=== PATIENT | female | born 1975 | race Caucasian/White ===

== ENCOUNTER → 2016-12-21 | Outpatient (CLI) | payer OTHER ==
--- NOTE | 2016-12-21 09:19 | MAM ---
EXAM DESCRIPTION: Diagnostic Mammo,Left CLINICAL HISTORY: 41 yearsFemale6 MONTH FOLLOW UP COMPARISON: Digital screening bilateral examination 02/15/2016. Left breast digital diagnostic examination 02/28/2016. TECHNIQUE: Digital full field LM CC and MLO projections of the left breast. CAD was utilized. FINDINGS: Focal asymmetry again noted in the posterior third upper outer quadrant of the left breast. Stable since the prior studies. Breast density parenchymal pattern is: scattered fibroglandular densities. Numerous calcifications in the inferior left breast some in groups and some solitary. Also skin calcifications. No new mass density, no new focal asymmetry, and no suspicious microcalcifications in the left breast. IMPRESSION: BI-RADS CATEGORY: 3 PROBABLY BENIGN. Management: Short interval (6-month) follow-up or continued surveillance. This will be performed in January for one year follow-up of the right breast. The results and follow-up were discussed in person with the patient. Communication explaining the results and followup will be mailed to the patient and referring care provider. Electronically signed by: Ti Abad MD 12/21/2016 9:19 AM CDT
== END ==
LOC: MAMMO 08:30
PROVIDERS: ATTEND Family Medicine
DX: R92.8 Other abnormal and inconclusive findings on diagnostic imaging of breast (principal); Z04.8 Encounter for examination and observation for other specified reasons

== ENCOUNTER → 2017-05-11 | Outpatient (CLI) | payer SELFPAY | END | disposition home or self-care (01) | LOC: YCFC.O 08:20 | PROVIDERS: ATTEND Nurse Practitioner Family | DX: E78.2 Mixed hyperlipidemia (principal); I10 Essential (primary) hypertension ==

== ENCOUNTER → 2017-07-10 | Outpatient (CLI) | payer OTHER ==
--- NOTE | 2017-07-10 17:02 | MAM ---
EXAM DESCRIPTION: 3D Diagnostic, Bilateral: Digital Mammography CLINICAL HISTORY: 42 yearsFemalefollow up . Follow-up focal asymmetry upper outer quadrant posterior left breast. No complaints. No family history of breast cancer. Hysterectomy. No HRT. COMPARISON: Diagnostic digital 2-D breast examination are December 21, 2016.. Targeted left breast ultrasound following this examination. Left breast ultrasound 02/28/2016. Report from prior examination also reviewed. TECHNIQUE: Bilateral CC LM MLO projection full-field images, 3-D tomosynthesis digital mammographic technique. Also bilateral synthesized CC MLO LM full-field images. CAD not utilized. FINDINGS: The breast parenchymal density pattern is: Scattered areas of fibroglandular density. No skin thickening or nipple retraction bilateral solitary microcalcifications and skin calcifications. Again noted is focal asymmetry in the posterior third of the upper-outer quadrant of the left breast at the 230 clock position. Stable appearance since the prior study. No new focal, stellate mass or density, no new focal asymmetry , and no suspicious microcalcifications bilaterally. ULTRASOUND: Scanning at the 230-300 clock position of the left breast 6 to 9 cm from the nipple. Heterogeneous fatty and fibroglandular tissues are noted. Anechoic cyst measuring 4.5 x 3.7 mm with well-defined avalos and parallel orientation. Posterior acoustic enhancement. No abnormal vascularity. No discrete solid mass, parenchymal edema, or large calcification. No skin thickening. IMPRESSION: BI-RADS CATEGORY: 2 - BENIGN FINDINGS. FOLLOW UP: Return to routine digital bilateral screening, one year interval from July 2017. The FINDINGS and the follow-up plan were reviewed in person with the patient after the examination. Written communication explaining the IMPRESSION and follow-up will be mailed to the patient and referring care provider. According to the [employer], yearly mammograms are recommended starting at age 40 and continuing as long as a woman is in good health. Any breast change noted on a breast self-exam should be reported promptly to the patient's healthcare provider. Breast MRI is recommended for women with an approximately 20-25% or greater lifetime risk of breast cancer, including women with a strong family history of breast or ovarian cancer and women who have been treated for Hodgkin's disease. A negative mammographic report should not delay tissue diagnosis in patients with significant clinical history or physical findings. Extremely dense breast tissue limits the sensitivity of digital mammography. Electronically signed by: Ti Abad MD 07/10/2017 5:00 PM [facility]
--- NOTE | 2017-07-10 17:04 | US ---
EXAM DESCRIPTION: Breast,Left: Ultrasound CLINICAL HISTORY: 42 yearsFemale6 MONTH FOLLOW UP COMPARISON: Digital 3-D tomosynthesis diagnostic bilateral breast on this visit. Digital 2-D diagnostic left breast examination 12/21/2016. TECHNIQUE: Transcutaneous scanning of the upper-outer quadrant of the middle third and posterior left breast utilizing two-dimensional and Doppler modes. Scanning performed by the seafood specialist and Dr. Abad. FINDINGS: Scanning at the 230-300 clock position of the left breast 6 to 9 cm from the nipple. Heterogeneous fatty and fibroglandular tissues are noted. Anechoic cyst measuring 4.5 x 3.7 mm with well-defined avalos and parallel orientation. Posterior acoustic enhancement. No abnormal vascularity. No discrete solid mass, parenchymal edema, or large calcification. No skin thickening. IMPRESSION: 1. Bi-Rads Category 2: Benign. 2. Please refer to bilateral 3-D tomosynthesis diagnostic study and report on this visit. The FINDINGS and the follow-up plan were reviewed in person with the patient after the examination. Written communication explaining the IMPRESSION and follow-up will be mailed to the patient and referring care provider. Electronically signed by: Ti Abad MD 07/10/2017 5:03 PM [facility]
== END | disposition home or self-care (01) ==
LOC: MAMMO 15:54
PROVIDERS: ATTEND Family Medicine
DX: R92.8 Other abnormal and inconclusive findings on diagnostic imaging of breast (principal)
CPT/HCPCS: 76641; G0204; G0279

== ENCOUNTER → 2019-03-10 | Outpatient (CLI) | payer OTHER ==
--- NOTE | 2019-03-11 17:46 | MAM ---
EXAM DESCRIPTION: 3D Screening BILATERAL : Digital Mammography. CLINICAL HISTORY: 44 years Female ANNUAL SCREENING . No complaints. No personal or family history of breast cancer. Childbirth. Partial hysterectomy 20+ years ago. No HRT. Bilateral breast reduction. Lifetime risk of developing breast cancer (Tyrer-Cuzick model)(%): Not calculated COMPARISON: Screening digital breast tomosynthesis 02/15/2016. Bilateral diagnostic digital breast tomosynthesis 07/10/2017. TECHNIQUE: Bilateral CC and MLO projection full-field images, digital tomosynthesis mammographic technique. Bilateral digital 2-D full-field MLO images. CAD not available for tomosynthesis or 2-D images. FINDINGS: The breast parenchymal density pattern is: Scattered areas of fibroglandular density. No skin thickening or nipple retraction. Inferior bilateral breast calcifications. Small nodular densities, more numerous in the right breast. No new focal, stellate mass or density, focal asymmetry , and no suspicious microcalcifications bilaterally. Stable mammograms compared to prior study. Taking into account, differences in mammographic technique. IMPRESSION: Benign exam. BIRAD CATEGORY: 2 BENIGN FINDINGS. RECOMMENDATIONS: FOLLOW UP: Routine digital bilateral mammographic screening, one year interval from March 2019. Written communication explaining the IMPRESSION and follow-up, will be mailed to the patient and referring health care provider. The FINDINGS and the FOLLOW-UP plan were reviewed in person with the patient after the examination. According to the [employer], yearly mammograms are recommended starting at age 40 and continuing as long as a woman is in good health. Any breast change noted on a breast self-exam should be reported promptly to the patient's healthcare provider. Breast MRI is recommended for women with an approximately 20-25% or greater lifetime risk of breast cancer, including women with a strong family history of breast or ovarian cancer and women who have been treated for Hodgkin's disease. A negative mammographic report should not delay tissue diagnosis in patients with significant clinical history or physical findings. Extremely dense breast tissue limits the sensitivity of digital mammography. Electronically signed by: Ti Abad MD 03/11/2019 5:43 PM CDT
== END ==
LOC: MAMMO 13:23
PROVIDERS: ATTEND Family Medicine
DX: Z12.31 Encounter for screening mammogram for malignant neoplasm of breast (principal)

== ENCOUNTER 2019-03-26 16:09 | Emergency (ER) | payer SELFPAY ==
[2019-03-26 16:43] VITALS: TEMP 99
[2019-03-26] MEDS: diazePAM 5 MG TAB PO ONE (16:48)
[2019-03-26] MEDS: KETOROLAC TROMETHAMINE INJ 30 MG/ML VIAL IM ONE (16:49)
--- NOTE | 2019-03-26 17:16 | RAD ---
EXAM DESCRIPTION: Chest,1 View CLINICAL HISTORY: chest pain COMPARISON: 28 August 2014 TECHNIQUE: AP portable chest FINDINGS: The lungs are clear. There is no infiltrate or effusion. The heart is normal size. IMPRESSION: Normal portable chest Electronically signed by: Guzman Barros MD 03/26/2019 5:14 PM CDT
--- NOTE | 2019-03-26 17:17 | CT ---
EXAM DESCRIPTION: Head CLINICAL HISTORY: headache, known Chiari malformation COMPARISON: None available TECHNIQUE: Multiple axial images of the head without contrast. Multiplanar reformatted images. This exam was performed according to our departmental dose-optimization program, which includes automated exposure control, adjustment of the mA and/or kV according to patient size and/or use of iterative reconstruction technique. FINDINGS: There is no CT evidence of intracranial hemorrhage, mass effect, or large territory infarction. Gated appearance of the cerebellar tonsils which extend below the level of the foramen magnum. The brain parenchyma and ventricles are otherwise normal. There are no abnormal extra-axial fluid collections. Vascular structures are unremarkable. There is no acute calvarial defect. The visualized paranasal sinuses and the mastoids are clear. IMPRESSION: 1. No CT evidence of an acute intracranial abnormality. If there is concern for an acute or subacute infarct, consider follow-up MRI. 2. Chiari I malformation. Electronically signed by: Jomar Adames MD 03/26/2019 5:16 PM CDT
[2019-03-26 17:24] VITALS: BP 167/84; O2SAT 96
--- NOTE | 2019-03-26 17:46 | ED.PDOC ---
History of Present Illness - General Chief Complaint: General Stated Complaint: headache, chest pressure Time Seen by Provider: 03/26/19 16:11 Source: patient Exam Limitations: no limitations - History of Present Illness Initial Comments: the patient is a 44-year-old female presenting to the emergency room secondary to a headache that is been persistent since last night. She does have a history of a Chiari I malformation diagnosed in 2009. She has not been able to have it followed up in the last for 5 years secondary to having no insurance. No focal neurological changes. The patient is obviously very scared and anxious. She is currently having a panic attack hyperventilating and shaking. She reports tingling in her extremities and around her mouth as well as some shortness of breath and chest pressure. Headache is fairly circumferential. Again no focal neurological changes. No syncope. No incontinence. Timing/Duration: other - about 18 hours Severity: moderate Improving Factors: nothing Worsening Factors: nothing Associated Symptoms: headaches Allergies/Adverse Reactions: Allergies Meperidine [From Demerol HCl] Allergy (Verified 08/28/14 12:54) Tetanus Toxoid Adverse Reaction (Verified 08/28/14 12:54) Home Medications: Ambulatory Orders ALPRAZolam [Xanax] 0 mg PO DAILY 08/28/14 Azithromycin [Zithromax Z-Lars] 1 ea PO DAILY #1 pack 08/28/14 Cyclobenzaprine HCl [Flexeril] 0 mg PO DAILY 08/28/14 HYDROmorphone HCL [Dilaudid] 4 mg PO DAILY 08/28/14 Lamotrigine [Lamictal] 100 mg PO DAILY 08/28/14 Morphine Sulfate [Morphine Sulfate ER] 0 mg PO DAILY 08/28/14 Oseltamivir Capsule [Tamiflu] 75 mg PO BID #10 cap 08/28/14 Review of Systems - Review of Systems Constitutional: States: malaise EENTM: States: no symptoms reported Respiratory: States: see HPI Cardiology: States: see HPI Gastrointestinal/Abdominal: States: no symptoms reported Genitourinary: States: other - ccasional mild dysuria. Musculoskeletal: States: other - chronic pain issues at multiple sites. Skin: States: no symptoms reported Neurological: States: anxiety, headache Endocrine: States: no symptoms reported All other Systems: No Change from Baseline Past Medical History (General) - Patient Medical History Hx Seizures: No Hx Stroke: No Hx Dementia: No Hx Asthma: No Hx of COPD: No Hx Cardiac Disorders: No Hx Congestive Heart Failure: No Hx Pacemaker: No Hx Hypertension: No Hx Thyroid Disease: No Hx Diabetes: No Hx Gastroesophageal Reflux: No Hx Renal Disease: No Hx of HIV: No Hx MRSA: No Surgical History: Hysterectomy, other - Social History Hx Tobacco Use: No Hx Alcohol Use: No Hx Substance Use: No Hx Substance Use Treatment: No Hx Depression: No Family Medical History - Family History Mother Living Status: Still Living Physical Exam - Physical Exam General Appearance: Alert, Anxious, Obvious distress Eye Exam: bilateral normal Ears, Nose, Throat: hearing grossly normal, normal ENT inspection Neck: full range of motion, supple Respiratory: lungs clear, normal breath sounds, no respiratory distress, no accessory muscle use Cardiovascular/Chest: normal peripheral pulses, no edema, tachycardia Peripheral Pulses: radial,right: 2+, radial,left: 2+, dorsalis pedis,right: 2+, dorsalis pedis,left: 2+ Gastrointestinal/Abdominal: non tender - obese, soft Rectal Exam: deferred Back Exam: no CVA tenderness, no vertebral tenderness Extremity: non-tender, normal inspection, no pedal edema, normal capillary refill Neurologic: ophthalmic medical assistant II-XII nml as tested, no motor/sensory deficits, alert, oriented x 3, other - ighly anxious and having a panic attack Skin Exam: normal color Comments: Vital Signs - 24 hr 03/26/19 03/26/19 16:15 17:10 Temperature 99.0 F Pulse Rate [ 120 H 86 left brachial] Respiratory 24 20 Rate Blood Pressure 160/116 167/84 [left brachial] O2 Sat by Pulse 98 96 Oximetry blood pressures are now down to 120s over 80s. Progress - Progress Progress: 03/26/19 17:48 the patient is a 44-year-old female presented secondary to headache of about 18 hours duration. No focal neurological changes. The patient is having a panic attack upon arrival which is driving up her heart rate and blood pressure. Once the patient relaxes both of these go back to normal. Head CT shows no evidence of any acute changes. She does have the chronic Chiari I type malformation. 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 She needs to keep herself well hydrated. She does report some dysuria however her urine is fairly clear. This may be from a mild vaginitis. She can try some [id number] Monistat for symptomatic relief. ER warnings were given for any abrupt worsening. The patient will be discharged home to hopefully sleep off the remainder of the headache. headache has moderately improved with medications given. This is most likely a tension type headache. Keep routine follow-up with primary care doctor otherwise. 03/26/19 17:50 - Results/Orders Results/Orders: ead CT shows no acute pathology. She does still have the Chiari I malformation. Chest x-ray shows no acute pathology. EKG shows sinus tachycardia at 116 bpm Normal TX interval. Normal QT interval. Normal axis. Normal R-wave progression. No ST segment or T-wave changes indicative of acute ischemia. Laboratory Tests 03/26/19 03/26/19 03/26/19 16:45 16:47 16:47 WBC 9.1 RBC 4.33 Hgb 11.5 L Hct 34.4 L MCV 79.6 L MCH 26.6 L MCHC 33.4 RDW 15.6 H Plt Count 308 MPV 8.0 Absolute Neuts (auto) 6.40 Absolute Lymphs (auto) 2.20 Absolute Monos (auto) 0.40 Absolute Eos (auto) 0.00 Absolute Basos (auto) 0.00 Neutrophils % 70.8 Lymphocytes % 24.3 Monocytes % 4.4 Eosinophils % 0.1 L Basophils % 0.4 Sodium 139 Potassium 3.8 Chloride 103 Carbon Dioxide 26 Anion Gap 13.8 BUN 13 Creatinine 1.07 BUN/Creatinine Ratio 12.1 Random Glucose 128 H Serum Osmolality 279.3 Calcium 9.4 Magnesium 2.0 Total Bilirubin 0.2 AST 19 ALT 16 Alkaline Phosphatase 82 Creatine Kinase 54 CK-MB (CK-2) 1.2 CK-MB (CK-2) % Not Reportable Troponin I < 0.02 B-Natriuretic Peptide 15.9 Serum Total Protein 8.1 Albumin 3.9 Globulin 4.2 H Albumin/Globulin Ratio 0.9 L TSH 0.64 Urine Color Yellow Urine Appearance Sl cloudy Urine pH 6.0 Ur Specific [place] <= 1.005 Urine Protein Negative Urine Glucose (UA) Negative Urine Ketones Negative Urine Blood Trace-intact H Urine Nitrite Negative Urine Bilirubin Negative Urine Urobilinogen 0.2 Ur Leukocyte Esterase Small H Urine RBC 0 Urine WBC 3-5 H Ur Epithelial Cells 1-3 Amorphous Sediment 1+ Urine Bacteria 1+ Departure - Departure Clinical Impression: Panic attack Headache Qualifiers: Headache type: unspecified Headache chronicity pattern: acute headache Intractability: not intractable Qualified Code(s): R51 - Headache Disposition: Discharge to Home or Self Care Condition: Fair Departure Forms: ED Discharge - Pt. Copy, Patient Portal Self Enrollment Instructions: Anxiety, Adult (DC) Diet: regular diet Activity: increase activity as tolerated Referrals: Marcia Lilly NP [Primary Care Provider] - 1-2 Weeks Home Medications: Ambulatory Orders ALPRAZolam [Xanax] 0 mg PO DAILY 08/28/14 Azithromycin [Zithromax Z-Lars] 1 ea PO DAILY #1 pack 08/28/14 Cyclobenzaprine HCl [Flexeril] 0 mg PO DAILY 08/28/14 HYDROmorphone HCL [Dilaudid] 4 mg PO DAILY 08/28/14 Lamotrigine [Lamictal] 100 mg PO DAILY 08/28/14 Morphine Sulfate [Morphine Sulfate ER] 0 mg PO DAILY 08/28/14 Oseltamivir Capsule [Tamiflu] 75 mg PO BID #10 cap 08/28/14 Additional Instructions: the patient is a 44-year-old female presented secondary to headache of about 18 hours duration. No focal neurological changes. The patient is having a panic attack upon arrival which is driving up her heart rate and blood pressure. Once the patient relaxes both of these go back to normal. Head CT shows no evidence of any acute changes. She does have the chronic Chiari I type malformation. She does need to keep follow-up with neurology for this in the correction. She needs to keep herself well hydrated. She does report some dysuria however her urine is fairly clear. This may be from a mild vaginitis. She can try some [id number] Monistat for symptomatic relief. ER warnings were given for any abrupt worsening. The patient will be discharged home to hopefully sleep off the remainder of the headache. This is most likely a tension type headache. Keep routine follow-up with primary care doctor otherwise.
== END 2019-03-26 17:57 | disposition home or self-care (01) ==
LOC: ER 16:09
DX: R51 Headache (principal); F41.0 Panic disorder [episodic paroxysmal anxiety]; R07.89 Other chest pain; R30.0 Dysuria; R00.0 Tachycardia, unspecified; G93.5 Compression of brain; G89.29 Other chronic pain
CPT/HCPCS: 36415; 70450; 71045; 80053; 81001; 82550; 82553; 83735; 83880; 84443; 84484; 85025; 87077; 87086; 87186; 93005; J1885

== ENCOUNTER → 2019-04-13 | Outpatient (CLI) | payer SELFPAY | LOC: YCFC.O 11:07 | PROVIDERS: ATTEND Nurse Practitioner Family | DX: I10 Essential (primary) hypertension (principal); Z13.220 Encounter for screening for lipoid disorders; Z68.42 Body mass index [BMI] 45.0-49.9, adult ==

== ENCOUNTER 2019-04-24 06:29 | Emergency (ER) | payer SELFPAY ==
[2019-04-24] MEDS ORDERED: SODIUM CHLORIDE 0.9% 1000ML 1,000 ML IVS ONE (06:56)
--- NOTE | 2019-04-24 06:59 | ED.PDOC ---
History of Present Illness - General Source: patient Exam Limitations: no limitations - History of Present Illness Initial Comments: the patient is a 44-year-old female presenting to the emergency room secondary to his sensation of feeling dizzy primarily with sitting up or standing up for the last 2 days. She was eventually started on atenolol and lisinopril by her primary care doctor about a week ago. She only took 2 or 3 days of this medication because it was making her have low blood pressures and be dizzy. She discontinued these medications about 2 days ago according to her. Blood pressure is still on the lower end of normal in the 90s over 70s here. There is no abnormal nystagmus. She does get a little bit dizzy with sitting up. We are going to test tilt vitals. She was actually seen here around 3 weeks ago by me for what ended up looking like an anxiety attack along with tension headache. The patient is on chronic pain management in the form of a fentanyl patch, hydrocodone when necessary and Lyrica. These obviously may be contributing to low blood pressures well. Additionally the patient is reporting some urinary frequency and dysuria. I see no focal neurological deficits on this patient are obviously new. No abnormal nystagmus at this point. The description of her symptoms does not seem to fit the description for vertigo either. Timing/Duration: other - 2-5 days Severity: mild Improving Factors: rest Worsening Factors: movement Associated Symptoms: denies symptoms <Jhon Heaton L - Last Filed: 04/24/19 06:56> <Christiano Comer - Last Filed: 04/24/19 08:44> - General Chief Complaint: Cardiovascular Problem Stated Complaint: "heart pounding" x2 days Time Seen by Provider: 04/24/19 06:45 - History of Present Illness Allergies/Adverse Reactions: Allergies Meperidine [From Demerol HCl] Allergy (Verified 08/28/14 12:54) Tetanus Toxoid Adverse Reaction (Verified 08/28/14 12:54) Home Medications: Ambulatory Orders ALPRAZolam [Xanax] 0.5 mg PO QID PRN 08/28/14 Lamotrigine [Lamictal] 400 mg PO BEDTIME 08/28/14 Fentanyl 25 mcg TD Q72H 03/26/19 HYDROcodone 10MG/APAP 325MG [[place] 10/325] 1 ea PO QID PRN 03/26/19 Lamotrigine [Lamictal] 100 mg PO 03/26/19 Pregabalin [Lyrica] 75 mg PO QID 03/26/19 Cefuroxime Axetil 250 mg PO Q12H 10 Days #20 tablet 04/24/19 Review of Systems - Review of Systems Constitutional: States: malaise EENTM: States: no symptoms reported Respiratory: States: no symptoms reported Cardiology: States: no symptoms reported Gastrointestinal/Abdominal: States: nausea - when the dizziness is at its worst Genitourinary: States: no symptoms reported Musculoskeletal: States: see HPI - chronic back pain Skin: States: no symptoms reported Neurological: States: see HPI, anxiety Endocrine: States: no symptoms reported All other Systems: No Change from Baseline <Jhon Heaton - Last Filed: 04/24/19 06:56> Past Medical History (General) - Patient Medical History Hx Seizures: No Hx Stroke: No Hx Dementia: No Hx Asthma: No Hx of COPD: No Hx Cardiac Disorders: No Hx Congestive Heart Failure: No Hx Pacemaker: No Hx Hypertension: Yes Hx Thyroid Disease: No Hx Diabetes: No Hx Gastroesophageal Reflux: Yes Hx Renal Disease: No Hx Cancer: No Hx of HIV: No Hx Hepatitis C: No Hx MRSA: No Surgical History: Hysterectomy, other - Vaccination History Hx Tetanus, Diphtheria Vaccination: No Hx Influenza Vaccination: Yes Hx Pneumococcal Vaccination: No Immunizations Up to Date: No - Social History Hx Tobacco Use: No Hx Alcohol Use: No Hx Substance Use: No Hx Substance Use Treatment: No Hx Depression: No <Jhon Heaton - Last Filed: 04/24/19 06:56> Family Medical History - Family History Mother Living Status: Still Living <Jhon Heaton - Last Filed: 04/24/19 06:56> Physical Exam - Physical Exam General Appearance: Alert, Comfortable, No apparent distress Eye Exam: bilateral normal Ears, Nose, Throat: hearing grossly normal, normal ENT inspection Neck: non-tender, supple Respiratory: lungs clear, normal breath sounds, no respiratory distress, no accessory muscle use Cardiovascular/Chest: normal peripheral pulses, regular rate, rhythm - mild sinus tachycardia, no edema Peripheral Pulses: radial,right: 2+, radial,left: 2+, dorsalis pedis,right: 2+, dorsalis pedis,left: 2+ Gastrointestinal/Abdominal: non tender - morbidly obese, soft Rectal Exam: deferred Back Exam: no CVA tenderness, no vertebral tenderness Extremity: normal range of motion, non-tender, no calf tenderness, normal capillary refill Neurologic: aviation tactical readiness officer II-XII nml as tested, alert, oriented x 3, other - the patient seems fairly happy to be here Skin Exam: normal color Comments: Vital Signs - 24 hr 04/24/19 04/24/19 06:34 06:53 Pulse Rate 96 H Pulse Rate [ 110 H 101 H radial] Respiratory 16 Rate Blood Pressure 98/75 [left] O2 Sat by Pulse 95 Oximetry <Jhon Heaton - Last Filed: 04/24/19 06:56> Progress - Progress Progress: 04/24/19 07:55 PT REPORTS CONTINUED DIZZINESS ALTHOUGH BP HAS IMPROVED, NOW 113/77 AFTER APPROX 750ML IV NS. LABS AND DIAGNOSTICS DISCUSSED WITH PT. WILL REPLACE POTASSIUM, UA STILL PENDING. 04/24/19 08:40 PTS BP NOW 137/91 AFTER FULL LITER OF FLUID. UA RESULTS DISCUSSED. RECOMMEND FOLLOW UP WITH PCP REGARDING FLUCTUATING BP READINGS. <Christiano Comer - Last Filed: 04/24/19 08:44> Departure <Jhon Heaton - Last Filed: 04/24/19 06:56> - Departure Time of Disposition: 08:41 <Christiano Comer - Last Filed: 04/24/19 08:44> - Departure Clinical Impression: Dizziness, Hypotension, UTI (urinary tract infection), Hypokalemia Disposition: Discharge to Home or Self Care Condition: Good Departure Forms: ED Discharge - Pt. Copy, Patient Portal Self Enrollment Instructions: Dizziness, Nonvertigo, (DC), Urinary Tract Infection, Adult (DC), Hypokalemia (DC) Referrals: Marcia Lilly PHOTOGRAPHIC PROCESSOR [Primary Care Provider] - 1-5 Days Prescriptions: Cefuroxime Axetil 250 mg PO Q12H 10 Days #20 tablet Home Medications: Ambulatory Orders ALPRAZolam [Xanax] 0.5 mg PO QID PRN 08/28/14 Lamotrigine [Lamictal] 400 mg PO BEDTIME 08/28/14 Fentanyl 25 mcg TD Q72H 03/26/19 HYDROcodone 10MG/APAP 325MG [[place] 10/325] 1 ea PO QID PRN 03/26/19 Lamotrigine [Lamictal] 100 mg PO 03/26/19 Pregabalin [Lyrica] 75 mg PO QID 03/26/19 Cefuroxime Axetil 250 mg PO Q12H 10 Days #20 tablet 04/24/19
--- NOTE | 2019-04-24 07:14 | RAD ---
CHEST, ONE VIEW XR 04/24/2019 CLINICAL HISTORY: Dizziness COMPARISON: Chest 03/26/2019. TECHNIQUE: AP Chest. FINDINGS: [Normal cardiac size. Pulmonary vasculature appears normal. Normal cardiomediastinal contours. Lungs are clear. Pleural spaces are clear. Unremarkable soft tissues and bones.] IMPRESSION: 1. Negative chest. Electronically signed by: Katia Bansal DO 04/24/2019 7:12 AM CDT
[2019-04-24] MEDS ORDERED: POTASSIUM CHLORIDE 20 MEQ TAB PO ONE (08:05)
[2019-04-24] MEDS ORDERED: cefTRIAXone SODIUM 1 GM in SODIUM CHL 0.9% 50ML MIN-BAG+ 50 ML IVPB ONE (08:06)
[2019-04-24] MEDS ORDERED: cefTRIAXone SODIUM 1 GM VIAL ONE (08:12)
[2019-04-24] MEDS ORDERED: SODIUM CHL 0.9% 50ML MIN-BAG+ 50 ML IVPB ONE (08:13)
[2019-04-24 08:52] VITALS: BP 137/64; TEMP 97.1; O2SAT 97
== END 2019-04-24 08:52 | disposition home or self-care (01) ==
LOC: ER 06:29
DX: R42 Dizziness and giddiness (principal); I95.9 Hypotension, unspecified; N39.0 Urinary tract infection, site not specified; E87.6 Hypokalemia; E66.01 Morbid (severe) obesity due to excess calories; R00.0 Tachycardia, unspecified; K21.9 Gastro-esophageal reflux disease without esophagitis; I10 Essential (primary) hypertension; Z79.899 Other long term (current) drug therapy; Z88.7 Allergy status to serum and vaccine; Z88.5 Allergy status to narcotic agent
CPT/HCPCS: 36415; 71045; 80053; 81001; 81025; 82550; 82553; 83605; 83735; 83880; 84484; 85025; 85610; 85730; 87077; 87086; 87186; 93005; J0696; J7030; J7050

== ENCOUNTER → 2019-11-18 | Outpatient (CLI) | payer SELFPAY | DX: Z13.29 Encounter for screening for other suspected endocrine disorder (principal) ==

== ENCOUNTER → 2019-12-28 | Outpatient (CLI) | payer SELFPAY | LOC: YCFC.O 17:03 | PROVIDERS: ATTEND Family Medicine | DX: R61 Generalized hyperhidrosis (principal) ==

== ENCOUNTER 2020-01-07 21:08 | Inpatient (IN) | payer SELFPAY ==
--- NOTE | 2020-01-07 22:27 | RAD ---
EXAM DESCRIPTION: XR CHEST, 1 VIEW CLINICAL HISTORY: palpitations TECHNIQUE: Single frontal view of the chest is submitted. COMPARISON: 04/24/2019 FINDINGS: Heart: The cardiothoracic silhouette is within normal limits. Lungs: No focal consolidation. Mediastinum: Unremarkable Pleura: No appreciable effusion. No pneumothorax. Bones: Intact Upper abdomen: Unremarkable IMPRESSION: No acute disease. Electronically signed by: Bernardo Betancourt MD 01/07/2020 10:23 PM CDT
[2020-01-07] MEDS ORDERED: POTASSIUM CHLORIDE ELIXIR 20 MEQ/15 ML UD PO ONE (22:45)
[2020-01-07] MEDS ORDERED: KCL 40MEQ/NS 1,000 ML IVS ONE (22:47)
--- NOTE | 2020-01-07 22:59 | ED.PDOC ---
History of Present Illness - General Chief Complaint: Chest Pain/LA Stated Complaint: lightheadedness, chest pressure Time Seen by Provider: 01/07/20 21:19 Source: patient Exam Limitations: no limitations - History of Present Illness Initial Comments: The patient is a 44-year-old female presented emergency room secondary to a couple weeks worth of feeling like her heart is racing and some mild associated shortness of breath. Mild loss of appetite over the last day or 2. No real chest pain. No syncope. Patient does have chronic pain issues and chronic anxiety issues along with depression. Timing/Duration: other - 2 weeks Severity: moderate Improving Factors: nothing Worsening Factors: nothing Associated Symptoms: loss of appetite, shortness of breath Allergies/Adverse Reactions: Allergies Meperidine [From Demerol HCl] Adverse Reaction (Verified 01/07/20 21:57) hallucination Tetanus Toxoid Adverse Reaction (Verified 08/28/14 12:54) Home Medications: Ambulatory Orders ALPRAZolam [Xanax] 0.5 mg PO QID PRN 08/28/14 Lamotrigine [Lamictal] 400 mg PO BEDTIME 08/28/14 Fentanyl 25 mcg TD Q72H 03/26/19 HYDROcodone 10MG/APAP 325MG [[place] 10/325] 1 ea PO QID PRN 03/26/19 Lamotrigine [Lamictal] 100 mg PO 03/26/19 Pregabalin [Lyrica] 75 mg PO QID 03/26/19 Cefuroxime Axetil 250 mg PO Q12H 10 Days #20 tablet 04/24/19 Review of Systems - Review of Systems Constitutional: States: malaise EENTM: States: no symptoms reported Respiratory: States: short of breath Cardiology: States: palpitations Gastrointestinal/Abdominal: States: no symptoms reported Genitourinary: States: no symptoms reported Musculoskeletal: States: no symptoms reported Skin: States: no symptoms reported Neurological: States: no symptoms reported Endocrine: States: no symptoms reported All other Systems: No Change from Baseline Past Medical History (General) - Patient Medical History Hx Seizures: No Hx Stroke: No Hx Dementia: No Hx Asthma: No Hx of COPD: No Hx Cardiac Disorders: No Hx Congestive Heart Failure: No Hx Pacemaker: No Hx Hypertension: Yes Hx Thyroid Disease: No Hx Diabetes: No Hx Gastroesophageal Reflux: Yes Hx Renal Disease: No Hx Cancer: No Hx of HIV: No Hx Hepatitis C: No Hx MRSA: No Surgical History: Hysterectomy, other - Vaccination History Hx Tetanus, Diphtheria Vaccination: No Hx Influenza Vaccination: Yes Hx Pneumococcal Vaccination: No Immunizations Up to Date: No - Social History Hx Tobacco Use: No Hx Chewing Tobacco Use: No Hx Alcohol Use: No Hx Substance Use: No Hx Substance Use Treatment: No Hx Depression: Yes - [place] Feels Threatened In Home Enviroment: No Feels Threatened In a Relationship: No Hx Physical Abuse: No Hx Emotional Abuse: No Hx Suspected Abuse: No - Activities of Daily Living Hospice Agency (if applicable):: None - Female History Patient is a Female of Child Bearing Age (10 -59 yrs old): Yes - partial hyst Patient : No Family Medical History - Family History Mother Living Status: Still Living Physical Exam - Physical Exam General Appearance: Alert, Anxious, No apparent distress Eye Exam: bilateral normal Ears, Nose, Throat: hearing grossly normal, normal ENT inspection Neck: full range of motion, supple Respiratory: lungs clear, normal breath sounds, no respiratory distress, no accessory muscle use Cardiovascular/Chest: normal peripheral pulses, no edema, tachycardia - Sinus tachycardia Peripheral Pulses: radial,right: 2+, radial,left: 2+ Gastrointestinal/Abdominal: non tender - Obese, soft Rectal Exam: deferred Extremity: normal range of motion, no calf tenderness, normal capillary refill Neurologic: certification engineer II-XII nml as tested, alert, oriented x 3, other - Anxious and tearful Skin Exam: normal color Comments: Vital Signs - 24 hr 01/07/20 01/07/20 01/07/20 21:29 21:54 22:09 Temperature 97.9 F Pulse Rate 112 H Pulse Rate [ 102 H 101 H 93 H monitor] Respiratory 20 18 Rate Blood Pressure 133/108 111/81 [Right Arm] O2 Sat by Pulse 98 96 Oximetry Progress - Progress Progress: 01/07/20 23:00 The patient is a 44-year-old female presented to emergency room with symptoms of shortness of breath palpitations intermittently. This is most likely related to significant symptomatic hypokalemia. The patient has received 40 mEq orally currently and is receiving another 40 mEq of the IV overnight. The patient will be monitored as an observation overnight for supplementation of the potassium. She will likely be able to go home tomorrow assuming she does well overnight. Source of the hypokalemia is most likely her hydrochlorothiazide which will need to be discontinued. Admit for continued care and monitoring. alessandro carvalho [phone] - Results/Orders Results/Orders: Chest x-ray appears to be within normal limits. EKG shows normal sinus rhythm at 97 bpm. Borderline right axis deviation. Normal R wave progression. No ST segment or T wave changes indicative of acute ischemia. Borderline QT interval. Laboratory Tests 01/07/20 01/07/20 01/07/20 21:46 21:46 21:46 WBC 10.2 RBC 4.56 Hgb 12.3 Hct 36.6 MCV 80.1 L MCH 27.0 MCHC 33.7 RDW 15.1 H Plt Count 338 MPV 8.7 Absolute Neuts (auto) 6.20 Absolute Lymphs (auto) 3.20 Absolute Monos (auto) 0.80 Absolute Eos (auto) 0.00 Absolute Basos (auto) 0.00 Neutrophils % 60.6 Lymphocytes % 31.6 Monocytes % 7.5 Eosinophils % 0.0 L Basophils % 0.3 PT 10.3 INR 1.04 PTT (SP) 32.3 H D-Dimer, Quantitative < 131 L Sodium 134 L Potassium 2.5 L Chloride 97 L Carbon Dioxide 27 Anion Gap 12.5 BUN 21 H Creatinine 1.22 BUN/Creatinine Ratio 17.2 Random Glucose 153 H Serum Osmolality 274.2 L Calcium 9.0 Magnesium 2.1 Total Bilirubin 0.4 AST 20 ALT 17 Alkaline Phosphatase 77 Creatine Kinase 83 CK-MB (CK-2) 1.5 CK-MB (CK-2) % Not Reportable Troponin I < 0.02 B-Natriuretic Peptide 6.2 Serum Total Protein 8.2 Albumin 4.1 Globulin 4.1 H Albumin/Globulin Ratio 1.0 L TSH Urine Color Urine Appearance Urine pH Ur Specific [place] Urine Protein Urine Glucose (UA) Urine Ketones Urine Blood Urine Nitrite Urine Bilirubin Urine Urobilinogen Ur Leukocyte Esterase Urine RBC Urine WBC Ur Epithelial Cells Urine Bacteria Hyaline Casts Urine Mucus Urine Yeast Urine HCG, Qual 01/07/20 01/07/20 01/07/20 21:46 22:10 22:10 WBC RBC Hgb Hct MCV MCH MCHC RDW Plt Count MPV Absolute Neuts (auto) Absolute Lymphs (auto) Absolute Monos (auto) Absolute Eos (auto) Absolute Basos (auto) Neutrophils % Lymphocytes % Monocytes % Eosinophils % Basophils % PT INR PTT (SP) D-Dimer, Quantitative Sodium Potassium Chloride Carbon Dioxide Anion Gap BUN Creatinine BUN/Creatinine Ratio Random Glucose Serum Osmolality Calcium Magnesium Total Bilirubin AST ALT Alkaline Phosphatase Creatine Kinase CK-MB (CK-2) CK-MB (CK-2) % Troponin I B-Natriuretic Peptide Serum Total Protein Albumin Globulin Albumin/Globulin Ratio TSH 0.68 Urine Color Yellow Urine Appearance Cloudy Urine pH 5.5 Ur Specific [place] >= 1.030 Urine Protein Trace Urine Glucose (UA) Negative Urine Ketones Trace Urine Blood Negative Urine Nitrite Negative Urine Bilirubin Small H Urine Urobilinogen 0.2 Ur Leukocyte Esterase Negative Urine RBC 0 Urine WBC 1-3 Ur Epithelial Cells 5-10 Urine Bacteria 3+ H Hyaline Casts 1-3 Urine Mucus Small Urine Yeast Rare Urine HCG, Qual Negative Departure - Departure Clinical Impression: Hypokalemia, Palpitations Disposition: Admit Patient Departure Forms: ED Discharge - Pt. Copy, Patient Portal Self Enrollment Referrals: Lazara Madrid MD [Primary Care Provider] - 1-2 Weeks Home Medications: Ambulatory Orders ALPRAZolam [Xanax] 0.5 mg PO QID PRN 08/28/14 Lamotrigine [Lamictal] 400 mg PO BEDTIME 08/28/14 Fentanyl 25 mcg TD Q72H 03/26/19 HYDROcodone 10MG/APAP 325MG [Bethune ] 1 ea PO QID PRN 03/26/19 Lamotrigine [Lamictal] 100 mg PO 03/26/19 Pregabalin [Lyrica] 75 mg PO QID 03/26/19 Cefuroxime Axetil 250 mg PO Q12H 10 Days #20 tablet 04/24/19 Decision To Admit - Decistion To Admit Decision to Admit Reason: Medical Nature Decision to Admit Date: 01/07/20 Decision to Admit Time: 23:01
[2020-01-08] MEDS ORDERED: ONDANSETRON INJ 4 MG/2 ML VIAL IV PRN (00:22)
[2020-01-08] MEDS ORDERED: SODIUM CHLORIDE 0.9% (FLUSH) 10 ML SYG IV PRN (00:22)
[2020-01-08] MEDS ORDERED: HYDROcodone 10MG/APAP 325MG 1 EA TAB PO PRN (00:25)
[2020-01-08] MEDS ORDERED: CYCLOBENZAPRINE HCL 10 MG TAB PO PRN (00:25)
[2020-01-08] MEDS ORDERED: ALPRAZolam 0.5 MG TAB PO PRN (00:27)
[2020-01-08] MEDS ORDERED: IV SET AND CAP CHANGE INJ INJ SCH (00:30)
[2020-01-08] MEDS ORDERED: KCL 20 MEQ/NS 1,000 ML IVS PRN (01:28)
[2020-01-08] MEDS ORDERED: PANTOPRAZOLE SODIUM IV 40 MG VIAL IV SCH (06:30)
[2020-01-08 08:56] VITALS: O2SAT 94
[2020-01-08] MEDS ORDERED: VENLAFAXINE XR 75 MG CAP PO SCH (09:00)
[2020-01-08] MEDS ORDERED: ENOXAPARIN SODIUM 40 MG/0.4 ML SYG SUBCU SCH (09:00)
[2020-01-08] MEDS ORDERED: PREGABALIN 75 MG CAP PO SCH (09:00)
[2020-01-08] MEDS ORDERED: LISINOPRIL 10 MG TAB PO SCH (09:00)
[2020-01-08] MEDS ORDERED: SODIUM CHLORIDE 0.9% (FLUSH) 10 ML SYG IV SCH (09:00)
[2020-01-08] MEDS ORDERED: ATENOLOL 25 MG TAB PO SCH (09:00)
[2020-01-08 14:16] VITALS: BP 118/76; TEMP 97.1
--- NOTE | 2020-01-08 18:40 | SSS ---
SUPERVISING PHYSICIAN: Samy Trujillo MD DATE OF ADMISSION: 01/08/20 DATE OF DISCHARGE: 01/08/20 ADMISSION DIAGNOSIS: 1. Hypokalemia. 2. History of depression and anxiety with panic attacks. 3. Gastroesophageal reflux disease. 4. Hypothyroidism, not currently on medications. 5. Hypertension. 6. Chronic pain syndrome. DISCHARGE DIAGNOSIS: 1. Hypokalemia secondary to diuretic in the form of Dyazide. 2. History of depression and anxiety with panic attacks. 3. Gastroesophageal reflux disease. 4. Hypothyroidism, not currently on medications. 5. Hypertension. 6. Chronic pain syndrome. HISTORY OF PRESENT ILLNESS: Ms. Hayes is a 44-year-old female patient who initially presented to the Emergency Room late last night with some shortness of breath with intermittent palpitations. She denied any actual chest pains. She was noted to be not feeling well for the last couple of days and felt like her heart was racing, but denied any actual chest pains. No syncope. She does have some chronic issues with anxiety and pain along with depression. Her workup in the Emergency Room did reveal a low potassium at 2.5, but cardiac showed normal troponin at less than 0.02 with 12-lead EKG showing sinus rhythm at [address] segment or T-wave changes to indicate acute ischemia or injury pattern. She was treated with oral potassium. It is felt that her hypokalemia is more likely due to her hydrochlorothiazide. She was noted to be stable condition and was then placed in observation for further cardiac telemetry monitoring and evaluation. PAST MEDICAL HISTORY: 1. Gastroesophageal reflux disease. 2. Hypothyroidism. 3. Depression and anxiety. 4. Hypertension. 5. Chronic pain syndrome managed by Dr. Ti Ochoa at a pain treatment facility in [place]. PAST SURGICAL HISTORY: 1. Carpal tunnel surgery bilaterally in 2011. 2. Knee surgery in 2011. 3. Breast reduction in 2009. 4. Fusion of L5 to S1 in 2008. 5. Fusion of C4 to C5 in 2007. 6. Hysterectomy in 1998. 7. Tubal ligation in 1994. 8. Nodule removed from her thumb in 1985. HOME MEDICATIONS: 1. Vitamin B12 500 mcg daily. 2. Vitamin B3 2000 units daily. 3. Calcium 99 mg daily. 4. Xanax 1 to 2 mg daily as needed. 5. Tenormin 25 mg daily. 6. Fexofenadine extended release 150 mg daily. 7. Flexeril 10 mg b.i.d. as needed. 8. Fentanyl 25 mcg topical patch q.72h. 9. [place] 10/325 mg 1 p.o. q.i.d. as needed. 10. Lisinopril 20 mg/hydrochlorothiazide 25 mg daily. ALLERGIES: MEPERIDINE, TETANUS TOXOID. FAMILY HISTORY: SOCIAL HISTORY: REVIEW OF SYSTEMS: CONSTITUTIONAL: Positive for general malaise. Negative for any fevers, chills or unintentional weight loss. HEENT: Negative for sore throats, earaches, nasal congestion, vision changes. RESPIRATORY: Denies shortness of breath, wheezing, coughing. CARDIOVASCULAR: Negative for chest pain, palpitations or syncopal episodes. GASTROINTESTINAL: Negative for nausea, vomiting, diarrhea, constipation or abdominal pain. GENITOURINARY: Negative for dysuria, hematuria, polyuria. SKIN: Negative for lesions, rashes or unexplained changes. MUSCULOSKELETAL: Negative for arthralgias, joint swelling. NEUROLOGIC: Denies ataxia, seizures, or other neurologic deficits. HEMATOLOGIC: Denies easy bruising, unexplained bleeding or transfusion reactions. PHYSICAL EXAMINATION: VITAL SIGNS: Temperature 97.9. Pulse 112. Blood pressure 133/108. Respirations 20. Saturation 98% on room air. After treatment and prior to admission, the patient showed heart rate 86, blood pressure down to 99/81, respirations 16, saturation 98% on room air. GENERAL: On admission to the Medical/Surgical Floor, the patient was stable and in no acute distress. She is alert and well hydrated. HEENT: Tympanic membranes clear bilaterally. Oropharynx is pink, moist without any lesions. NECK: Supple, nontender with full range of motion. No jugular venous distention noted. RESPIRATORY: Lung sounds are clear to auscultation bilaterally without any rhonchi, wheezes or rales. CARDIOVASCULAR: Regular rate and rhythm without any appreciable murmurs, gallops, or rubs. ABDOMEN: Soft, nontender. Positive bowel sounds. EXTREMITIES: There is no edema. NEUROLOGIC: Cranial nerves II-XII are grossly intact. Facial features are symmetrical. Extraocular movements are within normal limits. There is no nystagmus noted. The patient is alert and oriented times three. SKIN: Warm, pink and dry. LABORATORY: White count on admission was 10,200 and at discharge was 7,400. Hemoglobin 11.1, hematocrit 32.7 on discharge. Platelet count 259,000. Differential was without a left shift. Coagulation studies showed normal PT, PT-T. Chemistries showed a low sodium at 134, potassium 2.5, BUN 21, creatinine 1.22. Liver functions all within normal limits. Troponin less than 0.02. TSH normal at 0.68. After treatment and prior to discharge, potassium was 3.2. BUN 18, creatinine 0.97. Urinalysis showed a small amount of bilirubin. Microscopic revealed 3+ bacteria, rare yeast and mucus, 1 to 3 hyaline casts, 5 to 10 epithelials. Urine HCG was negative. RADIOLOGY: Chest x-ray per radiologic interpretation, single view, showed no acute disease. ASSESSMENT: 1. Mild hypokalemia. 2. Sinus tachycardia with palpitations, likely secondary to #1, resolved with treatment with no chest pains reported, no EKG changes prior to discharge. 3. History of depression and anxiety with panic attacks. 4. Gastroesophageal reflux disease. 5. Hypothyroidism, not currently on medications. 6. Hypertension. 7. Chronic pain syndrome. HOSPITAL COURSE: Ms. Hayes was admitted from the ER for hypokalemia with some palpitations. She was placed on telemetry. She was given potassium with labs showing improvement. She had no recurrence of her symptoms. It was noted there were no signs of infection and clinically she was stable to be able to transition to outpatient management to continue management of her hypokalemia. PLAN: Ms. Hayes was treated for hypokalemia which did resolve clinically and she was discharged to followup with Dr. Madrid at [facility]. She was to continue her medications as prescribed with noted changes of stopping the hydrochlorothiazide, but continue the lisinopril which she was given a prescription for. She was to resume her usual diet and resume usual activity as tolerated. She was to return to the Emergency Room if she had any concerning symptoms. DISPOSITION: She was discharged home. CONDITION ON DISCHARGE: Stable and improved. #[id number]. [facility]
[2020-01-09] MEDS ORDERED: fentaNYL PATCH 25 MCG/HR 1 EA PATCH TD SCH (09:00)
== END 2020-01-08 12:30 | disposition home or self-care (01) | DRG 641 ==
LOC: ER 21:08 → OBSVTOIN 23:43 → MS 23:43
PROVIDERS: ADMIT Nurse Practitioner Acute Care; ATTEND Nurse Practitioner Family
DX: E87.6 Hypokalemia (principal); E87.1 Hypo-osmolality and hyponatremia; F41.0 Panic disorder [episodic paroxysmal anxiety]; R63.0 Anorexia; F32.9 Major depressive disorder, single episode, unspecified; K21.9 Gastro-esophageal reflux disease without esophagitis; E03.9 Hypothyroidism, unspecified; I10 Essential (primary) hypertension; G89.4 Chronic pain syndrome; T50.2X5A Adverse effect of carbonic-anhydrase inhibitors, benzothiadiazides and other diuretics, initial encounter; Y92.9 Unspecified place or not applicable; Z79.891 Long term (current) use of opiate analgesic; Z79.899 Other long term (current) drug therapy; Z88.8 Allergy status to other drugs, medicaments and biological substances; Z88.7 Allergy status to serum and vaccine

== ENCOUNTER → 2020-02-29 | Outpatient (CLI) | payer SELFPAY ==
--- NOTE | 2020-02-29 13:47 | RAD ---
EXAM DESCRIPTION: Knee,Left Complete CLINICAL HISTORY: ERICKA KNEE PN COMPARISON: None. FINDINGS: 4 standing views of the left knee shows moderate narrowing of the medial tibiofemoral compartment with moderate joint line osteophytes. Mild joint line osteophytes of the lateral compartment are seen. Moderate osteophytes of the posterior superior and inferior patella are seen with mild joint space narrowing of the patellofemoral compartment. No acute fracture or dislocation. Soft tissues show mild increased density in the suprapatellar bursa region. IMPRESSION: [id number] 3 compartment osteoarthritic changes of the left knee most significant in the medial tibiofemoral compartment are seen. Small suprapatellar joint effusion is seen. Electronically signed by: Christiano Dao MD 02/29/2020 1:46 PM CDT
--- NOTE | 2020-02-29 13:48 | RAD ---
EXAM: Knee,Right Complete CLINICAL HISTORY: ERICKA KNEE PN COMPARISON STUDY: None TECHNICAL: 4 x-ray images of the right knee. FINDINGS: There is mild joint space loss of the medial compartment and small periarticular osteophytes. Lateral compartment is unremarkable. The patellofemoral joint shows mild joint space loss and periarticular osteophytes. A small joint effusion is present. No fracture or dislocation. IMPRESSION: Moderate osteoarthritic changes of the medial compartment and patellofemoral joint of the right knee. Electronically signed by: Riki Torre MD 02/29/2020 1:46 PM CDT
== END ==
LOC: YCFC.O 11:19
PROVIDERS: ATTEND Family Medicine
DX: M17.0 Bilateral primary osteoarthritis of knee (principal); M25.462 Effusion, left knee

== ENCOUNTER → 2020-04-01 | Outpatient (CLI) | payer SELFPAY ==
--- NOTE | 2020-04-02 10:42 | RAD ---
EXAM: Pelvis and hip CLINICAL HISTORY: Pain COMPARISON STUDY: None TECHNICAL: AP pelvis FINDINGS: The pelvic ring is intact and negative. Both hips are in anatomic alignment. There is no identifiable fracture. There is no osseous abnormality. There are no significant degenerative changes. IMPRESSION: Negative pelvis. Electronically signed by: Riki Torre MD 04/02/2020 10:41 AM CDT
== END ==
LOC: RAD 10:09
PROVIDERS: ATTEND Orthopaedic Surgery
DX: M25.551 Pain in right hip (principal)